=== PATIENT | female | born 1935 | race Caucasian/White ===

== ENCOUNTER 2016-12-22 19:14 | Emergency (ER) | payer MEDICARE, BC ==
[2016-12-22 19:12] LABS: BASOPHILS 0.5 %; BASOPHILS ABSOLUTE 0.05 10/3/uL (0.0-0.16); EOSINOPHILS 0.6 %; EOSINOPHILS ABSOLUTE 0.06 10/3/uL (0.0-0.53); ER CBC TAT 0 Hrs 08 Mins; HEMATOCRIT 41.9 % (36.0-48.0); HEMOGLOBIN 13.2 g/dL (12.0-16.0); IMMATURE GRANULOCYTES 0.2 %; IMMATURE GRANULOCYTES ABSOLUTE 0.02 10/3/uL (0.0-0.11); LYMPHOCYTES 21.5 %; LYMPHOCYTES ABSOLUTE 2.03 10/3/uL (0.67-4.30); MANUAL DIFF NO %; MEAN CORPUS HGB CONC 31.5 g/dL (32.0-36.0); MEAN CORPUSCULAR HEMOGLOB 29.1 pg (26.0-34.0); MEAN CORPUSCULAR VOLUME 92.5 fL (80-100); MEAN PLATELET VOLUME 10.9 fL (9.2-13.0); MONOCYTES ABSOLUTE 0.66 10/3/uL (0.21-1.20); NEUTROPHILS 70.2 %; NEUTROPHILS ABSOLUTE 6.63 10/3/uL (2.02-8.40); PLATELET COUNT 247 10/3/uL (150-400); RBC DISTRIBUTION WIDTH 14.5 % (12.0-16.0); RED CELL COUNT 4.53 10/6/uL (4.0-5.6); WHITE BLOOD CELLS 9.5 10/3/uL (4.5-10.5)
[~2016-12-22 19:14] MED LIST: ACET500CAP PO; ARAVA20 PO; CARASPUDL PO; ERY-TAB250 MG PO; FISH OIL300 MG PO; FLORASTOR250 MG PO; FOLIC PO; FOSAMAX70 MG PO; ICAPS AREDS SO1 EACH PO; K-TABS10 MEQ PO; LEVAQUIN750 MG PO; LOM PO; MACROBID PO; MELA3 PO; MTX2.5 PO; NORCO1 TA1 PO; NTG150 SL; OS250 PO; OS500+D PO; P5 PO; PLAQ200B PO; PR25 PO; PREDNISONE2.5 MG PO; PROTONIX PO; REG5 PO; VICODINTAB PO; ZOFRAN ODT4 MG PO; [UNRECOGNIZED DRUG - OTHER] PO
[2016-12-22 19:15] LABS: ASCORBIC ACID (UR NOT ORDER) NEG (NEG); BILIRUBIN, URINE NEGATIVE (NEG); ER URINALYSIS TAT 0 Hrs 11 Mins; KETONE, URINE TRACE MG/DL (NEG); LEUKOCYTE ESTERASE(NOT OR NEG (NEG); NITRITE (URINE) NEG (NEG); WBC (NOT ORDERED) (RFLEX) 1 (0-5)
[2016-12-22 19:29] LABS: CHEST PAIN PROFILE TAT 0 Hrs 25 Mins; CHLORIDE, SERUM 110 MMOL/L (96-112); CO2 (CARBON DIOXIDE) 30 MMOL/L (24-34); CREATININE 0.82 MG/DL (0.55-1.02); GFR AFRICAN AMERICAN 77 ML/MIN (>=60); GFR NON AFRICAN AMERICAN 66 ML/MIN (>=60); GLUCOSE, SERUM 88 MG/DL (60-99); POTASSIUM, SERUM 4.1 MMOL/L (3.5-5.3); SODIUM, SERUM 145 MMOL/L (135-148); TROPONIN I <0.02 NG/ML (<0.05)
[2016-12-22 19:30] LABS: BUN (BLOOD UREA NITROGEN) 13 MG/DL (6-23); CALCIUM, SERUM 9.8 MG/DL (8.5-10.4)
[2016-12-22 20:08] LABS: INTERNATIONAL NORMAL RATI 1.1 UNITS (-); PROTIME (NOT ORD) 13.9 SEC (12.0-14.5)
[2016-12-22 20:09] LABS: PARTIAL THROMBO TIME 25.6 SEC (22.5-37.2)
== END 2016-12-22 21:27 | disposition home or self-care (01) ==
LOC: ER 19:14
PROVIDERS: Emergency Medicine
DX: R07.89 Other chest pain (principal); R11.0 Nausea; Z85.038 Personal history of other malignant neoplasm of large intestine; Z88.5 Allergy status to narcotic agent; Z79.899 Other long term (current) drug therapy; Z79.52 Long term (current) use of systemic steroids
CPT/HCPCS: 71010; 80048; 81001; 83735; 84484; 85025; 85610; 85730; 93005; 99285